=== PATIENT | male | born 1940 ===

== ENCOUNTER 2018-03-09 09:59 | Outpatient (CLI) ==
--- NOTE | 2018-03-09 12:07 | RAD ---
RADIOGRAPH RIGHT FOOT THREE VIEWS: 03/09/2018 HISTORY: 77-year-old male with pain and swelling of the right foot. FINDINGS: There is diffuse, severe osteopenia. There is foreshortening of the calcaneus in the anteroposterior dimension, and rotation or other cause of distortion of the talus. Diffuse osteopenia. Soft tissue edema. No definitive acute fracture identified. The joints of the midfoot and forefoot demonstrate no major pathology. No destructive osseous lesion. IMPRESSION: 1. Anatomical distortion of the hindfoot, suggestive of old fractures of the calcaneus and talus. R ecommend correlation with history. 2. Diffuse soft tissue edema of the foot. 3. severe osteopenia. POS: [facility]
== END 2018-03-09 10:00 | disposition home or self-care (01) ==
LOC: SJMANOR 09:59
PROVIDERS: ATTEND Family Medicine
DX: M79.89 Other specified soft tissue disorders (principal); M79.671 Pain in right foot; M85.80 Other specified disorders of bone density and structure, unspecified site; Q66.9 Congenital deformity of feet, unspecified